=== PATIENT | female | born 1945 | race Caucasian/White ===

== ENCOUNTER 2016-09-04 13:57 | Inpatient (IN) ==
[2016-09-04] MEDS ORDERED: Ondansetron 4 MG/2 ML VIAL IVP ONE (15:33)
[2016-09-04] MEDS ORDERED: 0.9 % Sodium Chloride 1,000 ML IVC ONE ×2 (15:34→16:51)
[2016-09-04] MEDS ORDERED: Tdap (Boostrix) Vaccine 0.5 ML SYRINGE IM ONE (15:36)
--- NOTE | 2016-09-04 15:36 | Emergency Department Note ---
Disposition Clinical Impression: Frail elderly, Head injury, Vomiting, Hypoxemia, Multiple abrasions, Confusion , Fall, Sepsis, Pneumonia, Abnormal liver function test, Renal failure Disposition: Admitted As Inpatient Referrals: Tenzin Escobedo Jr, MD [Primary Care Provider] - Forms: ED Satisfaction Letter General Adult HPI - General Chief complaint: ED Nausea/Vomiting/Diarrhea Stated complaint: vomiting, weak Time Seen by Provider: 09/04/16 15:06 - History of Present Illness HPI Narrative: 71-year-old female comes in from home, her son reports the patient was on the floor when he got there. The patient complains of recurrent vomiting. She does not remember how she got on the floor, she was on the couch, there is concern that she may have hit her head. The patient denies any chest pain, her initial oxygen saturations were in the 80s at home, she does not usually wear oxygen has no history of asthma or COPD. There is no history of cough or chest pain or leg swelling no coughing up blood. There is no history of abdominal pain or diarrhea. No neck or back pain and no upper or lower extremity pain or trouble moving the arms or legs independent leak. There is a history of some confusion at home. The patient is usually able to take care of herself, her mentation is reportedly deep increased from usual. There is no history of seizure. No fevers. No urinary symptoms. The patient has had a unilateral arm or leg weakness or numbness, no slurred speech or facial drooping. Pain Scale: 0 - Related Data Home Medications Medication Instructions Recorded Confirmed Amitriptyline [Elavil] 50 mg PO HS 05/21/15 05/21/15 Aspirin Enteric Coated [Aspirin EC] 81 mg PO DAILY 05/21/15 05/21/15 Cholecalciferol (Vitamin D3) 5,000 unit PO DAILY 05/21/15 05/21/15 [Vitamin D3] Estradiol [Estrace] 1 mg PO DAILY 05/21/15 05/21/15 Lisinopril-HCTZ 20-12.5 [Prinzide 1 tab PO DAILY 05/21/15 05/21/15 20-12.5] Omeprazole [PriLOSEC] 20 mg PO DAILY 05/21/15 05/21/15 Previous Rx's Medication Instructions Recorded Acetaminophen [Tylenol] 650 mg PO Q6HR PRN #0 tablet 06/17/15 Alprazolam [Xanax 1 MG Tablet] 1 mg PO TID PRN #15 tablet 06/17/15 Atorvastatin [Lipitor] 40 mg PO HS tablet 06/17/15 Docusate [Colace] 100 mg PO BID PRN #0 capsule 06/17/15 Ferrous Sulfate 325 mg PO DAILY@0800 tablet 06/17/15 Fluticasone Propionate Nasal 50 mcg NS DAILY bottle 06/17/15 [Flonase] Ipratropium/Albuterol Neb [Duoneb] 3 ml IH QIDR inhsol 06/17/15 Magnesium Oxide [Mag-Ox] 400 mg PO DAILY tablet 06/17/15 Megestrol Acetate [Megace] 400 mg PO DAILY udc 06/17/15 Saline Nasal [place] [[place] Nasal 2 spray NS Q2H PRN #0 bottle 06/17/15 [place]] Amoxicillin [Amoxil] 500 mg PO Q8HR #30 capsule 03/15/16 Allergies Allergy/AdvReac Type Severity Reaction Status Date / Time No Known Allergies Allergy Verified 09/04/16 14:02 All systems ED: reviewed and negative except as stated. 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 Absent: scleral icterus, conjunctival injection, mydriasis - ENT ENT exam: normal exam, normal oropharynx, mucous membranes moist, TM's normal bilaterally, normal external ear exam - Neck Neck exam: Present: normal inspection, full ROM, trachea midline. Absent: tenderness - Chest Chest inspection: Present: symmetric chest wall rise. Absent: tenderness - Respiratory Respiratory exam: Present: normal lung sounds bilaterally. Absent: respiratory distress - Cardiovascular Cardiovascular exam: Present: normal rhythm, tachycardia - Abdominal Exam Abdominal exam: Present: soft, Non-Tender, normal bowel sounds. Absent: tenderness, distention, guarding, rebound, rigidity, trauma, pulsatile mass - Extremities Exam Extremities exam: Present: normal inspection, full ROM, normal capillary refill. Absent: tenderness, pedal edema, joint swelling, calf tenderness - Expanded Lower Extremity Exam Lower leg exam: Absent: Homans' sign Neurovascular/Tendon exam: Present: normal capillary refill. Absent: motor deficit, sensory deficit, tendon deficit, extremity cold to touch, pallor - Back Exam Back exam: Present: full ROM. Absent: tenderness, CVA tenderness (R), CVA tenderness (L), vertebral tenderness - Neurological Exam Neurological exam: Present: alert, oriented X3, CN II-XII intact. Absent: motor sensory deficit - Psychiatric Psychiatric exam: Present: normal affect, normal mood - Skin Skin exam: Present: warm, dry, intact, normal color. Absent: rash, cyanosis, diaphoresis, erythema, pallor, mottled Course Vital Signs Temperature 98.5 F 09/04/16 13:59 Pulse Rate 102 09/04/16 13:59 Respiratory Rate 16 09/04/16 13:59 Blood Pressure 113/71 09/04/16 13:59 O2 Sat by Pulse Oximetry 93 L 09/04/16 13:59 Temperature 98.5 F 09/04/16 13:59 Pulse Rate 102 09/04/16 13:59 Respiratory Rate 16 09/04/16 13:59 Blood Pressure 113/71 09/04/16 13:59 O2 Sat by Pulse Oximetry 93 L 09/04/16 13:59 Oxygen Delivery Oxygen Delivery Room Air Medical Decision Making - Lab Data Lab results reviewed: Yes I reviewed the patient's lab results. Result diagrams: 09/04/16 15:48 09/04/16 15:48 Lab Results 09/04/16 09/04/16 09/04/16 Range/Units 15:48 15:48 15:48 WBC 14.0 H (4.3-11.1) K/mcL RBC 3.55 L (3.82-4.97) M/mcL Hgb 10.9 L (11.5-15.4) g/dL Hct 31.6 L (35.3-44.9) % MCV 89.0 (83.0-100.0) fL MCH 30.7 (28.0-33.3) pg MCHC 34.5 (31.6-35.5) g/dL RDW 11.9 (11.5-14.5) % Plt Count 191 (140-400) K/mcL MPV 9.0 L (9.4-12.4) fL Immature Gran % 0.4 (0-4) % Seg Neutrophils % 87.5 % Lymphocytes % 6.1 % Monocytes % 5.4 % Eosinophils % 0.3 % Basophils % 0.3 % Neutrophils # 12.2 H (1.6-8.9) K/mcL Lymphocytes # 0.9 (0.6-4.6) K/mcL Monocytes # 0.8 (0.0-1.3) K/mcL Eosinophils # 0.0 (0.0-0.6) K/mcL Basophils # 0.0 (0.0-0.2) K/mcL Sodium 136 (136-145) mEq/L Potassium 3.9 (3.5-4.5) mEq/L Chloride 102 (98-109) mEq/L Carbon Dioxide 22 (19-29) mEq/L BUN 29 H (7-20) mg/dL Creatinine 1.72 H (0.57-1.11) mg/dL Est GFR ( Amer) 35 L (> 60) Est GFR (Non-Af Amer) 29 L (> 60) BUN/Creatinine Ratio 17 (6-26) Glucose 115 H (70-99) mg/dL Calculated Osmolality 289 (280-300) Lactic Acid (0.5-2.2) mmol/L Calcium 9.2 (8.6-10.8) mg/dL Total Bilirubin 2.0 H (0.2-1.2) mg/dL Direct Bilirubin 0.7 H (0.0-0.5) mg/dL Indirect Bilirubin 1.3 H (0.0-1.2) mg/dL AST 25 (5-34) Units/L ALT 13 (0-55) Units/L Alkaline Phosphatase 72 (38-126) Units/L Creatine Kinase (29-168) Units/L Troponin I 0.03 (0-0.03) ng/mL B-Natriuretic Peptide (0-100) pg/mL Serum Total Protein 6.7 (6.0-8.3) g/dL Albumin 3.6 (3.5-5.0) g/dL Globulin 3.1 (2.4-3.5) g/dL Albumin/Globulin Ratio 1.2 (1.1-2.2) Amylase 35 (25-125) Units/L Lipase 15 (8-78) Units/L 09/04/16 09/04/16 09/04/16 Range/Units 15:48 15:48 15:48 WBC (4.3-11.1) K/mcL RBC (3.82-4.97) M/mcL Hgb (11.5-15.4) g/dL Hct (35.3-44.9) % MCV (83.0-100.0) fL MCH (28.0-33.3) pg MCHC (31.6-35.5) g/dL RDW (11.5-14.5) % Plt Count (140-400) K/mcL MPV (9.4-12.4) fL Immature Gran % (0-4) % Seg Neutrophils % % Lymphocytes % % Monocytes % % Eosinophils % % Basophils % % Neutrophils # (1.6-8.9) K/mcL Lymphocytes # (0.6-4.6) K/mcL Monocytes # (0.0-1.3) K/mcL Eosinophils # (0.0-0.6) K/mcL Basophils # (0.0-0.2) K/mcL Sodium (136-145) mEq/L Potassium (3.5-4.5) mEq/L Chloride (98-109) mEq/L Carbon Dioxide (19-29) mEq/L BUN (7-20) mg/dL Creatinine (0.57-1.11) mg/dL Est GFR ( Amer) (> 60) Est GFR (Non-Af Amer) (> 60) BUN/Creatinine Ratio (6-26) Glucose (70-99) mg/dL Calculated Osmolality (280-300) Lactic Acid 1.9 (0.5-2.2) mmol/L Calcium (8.6-10.8) mg/dL Total Bilirubin (0.2-1.2) mg/dL Direct Bilirubin (0.0-0.5) mg/dL Indirect Bilirubin (0.0-1.2) mg/dL AST (5-34) Units/L ALT (0-55) Units/L Alkaline Phosphatase (38-126) Units/L Creatine Kinase 450 H (29-168) Units/L Troponin I (0-0.03) ng/mL B-Natriuretic Peptide 71 (0-100) pg/mL Serum Total Protein (6.0-8.3) g/dL Albumin (3.5-5.0) g/dL Globulin (2.4-3.5) g/dL Albumin/Globulin Ratio (1.1-2.2) Amylase (25-125) Units/L Lipase (8-78) Units/L - Radiology Data Radiology results reviewed: Yes I reviewed the patient's radiology results. - EKG Data EKG #1 EKG shows normal: sinus rhythm Rhythm: NSR, other (Sinus arrhythmia) Interpretation: no acute changes
[2016-09-04 15:56] LABS: Basophils % 0.3 %; Eosinophils % 0.3 %; Hematocrit 31.6 % (35.3-44.9); Hemoglobin 10.9 g/dL (11.5-15.4); Immature Granulocytes % 0.4 % (0-4); Lymphocytes # 0.9 K/mcL (0.6-4.6); Lymphocytes % 6.1 %; Mean Corpuscular HGB Conc 34.5 g/dL (31.6-35.5); Mean Corpuscular Hemoglobin 30.7 pg (28.0-33.3); Monocytes # 0.8 K/mcL (0.0-1.3); Monocytes % 5.4 %; Neutrophils # 12.2 K/mcL (1.6-8.9); Platelet Count 191 K/mcL (140-400); Red Blood Count 3.55 M/mcL (3.82-4.97); Red Cell Distribution Width 11.9 % (11.5-14.5); Segmented Neutrophils % 87.5 %
[2016-09-04 16:11] LABS: Albumin 3.6 g/dL (3.5-5.0); Albumin/Globulin Ratio 1.2 (1.1-2.2); Bilirubin,Direct 0.7 mg/dL (0.0-0.5); Bilirubin,Indirect 1.3 mg/dL (0.0-1.2); Calcium 9.2 mg/dL (8.6-10.8); Globulin 3.1 g/dL (2.4-3.5); Potassium 3.9 mEq/L (3.5-4.5); Total Protein 6.7 g/dL (6.0-8.3)
[2016-09-04] MEDS ORDERED: *HR* LORazepam 2 MG/ML VIAL IVP ONE (16:47)
[2016-09-04] MEDS ORDERED: Levofloxacin 750 MG/150 ML 750 MG/150 ML BAG IVPB ONE (16:50)
[2016-09-04] MEDS ORDERED: methylPREDNISolone 125 MG/2 ML VIAL IVP ONE (17:08)
--- NOTE | 2016-09-04 20:45 | Internal Med History&Physical ---
Date of Encounter: 09/04/16 Time of Encounter: 20:42 Assessment and Plan (1) Aspiration pneumonia Current visit: Yes Status: Acute Suspect that this is related to chronic constipation. However she still have concerns with aspiration regardless of vomiting. I will therefore keep the patient NPO speech therapist to see the patient. Patient will be started on antibiotics Zosyn and Levaquin. Sputum culture. Qualifiers: Qualified Code(s): J69.0 - Pneumonitis due to inhalation of food and vomit (2) Chronic renal disease Current visit: No Status: Acute Stable. hydration Qualifiers: Chronic kidney disease stage: unspecified stage Qualified Code(s): N18.9 - Chronic kidney disease, unspecified (3) Acute respiratory failure with hypoxia Current visit: Yes Status: Acute Patient is currently requiring 5 L of nasal oxygen. She is comfortable at rest. No accessory muscle use. She denies any prior known history of coronary artery disease. Internal Medicine - H&P: HPI Chief complaint: sob, AMS History of present illness: Ms. Chandler is a 71 year old female with multiple medical problems presented in the hospital after her father son found her stuporOUS on the ground close to her couch. Patient is alert and oriented times 3 during my interview and is able to provide history. Patient mentioned that she is usually constipated moves her bowels once weekly. She had eaten a lot yesterday and woke up at 3 AM feeling nauseous started throwing up multiple times. She thinks that she may have aspirated. She was found on the ground by her son less responsive. The chapter oxygen saturation was found to be 80% and therefore brought her to the emergency room. Patient had a similar episode in the recent hospitalization during which showed the syncopal episode unsuspected aspiration pneumonia. I have asked the patient whether she has normal swallowing when she is not vomiting and she said that she does have problems swallowing regardless of these episodes of vomiting. Patient short of breath during my interview speaking in 3 to 4 sentences. Positive chills but no fever. Patient denies any diarrhea. No abdominal pain. Last bowel movement 2 days ago. Past Med Surg Social Fam HX - Past Medical History Medical history: arthritis, GERD, hyperlipidemia, hypertension, osteoporosis, renal disease Psychiatric history: anxiety - Past Surgical History Surgical History: colectomy, hysterectomy - Social History Smoking Status: Unknown if ever smoked Smokeless Tobacco Status: No Alcohol use: unknown Drug use: none Internal Medicine - H&P: Meds Aspirin Enteric Coated [Aspirin EC] 81 mg PO DAILY 05/21/15 [History] Acetaminophen with Codeine [Acetaminophen-Cod #4 Tablet] 1 each PO Q4H PRN 09/04 [History] Alprazolam [Xanax 1 MG Tablet] 1 mg PO TID 09/04/16 [History] Ipratropium [place] 2 spray NS BID PRN 09/04/16 [History] Losartan/HCTZ [Hyzaar 50-12.5 Tablet] 1 each PO DAILY 09/04/16 [History] Simvastatin [Zocor] 80 mg PO HS 09/04/16 [History] Allergies ibuprofen [From Motrin] Adverse Reaction (Verified 09/04/16 17:19) Chest Pain Zolpidem [From Ambien] Adverse Reaction (Verified 09/04/16 17:19) Hallucinating All Systems PM: A 10-system review of systems was performed and is negative for pertinent findings except as documented above in the HPI. Review of systems: 10 point ROS is negative except for HPI. - Constitutional Vitals: Temp Pulse Resp BP Pulse Ox 97.4 F L 84 17 134/60 99 09/04/16 19:34 09/04/16 19:34 09/04/16 19:34 09/04/16 19:34 09/04/16 19:34 Exam: Gen.: patient is alert and oriented times 3 not in distress. Cardio: normal S1 S2 no additional sounds or murmers chest: scattered expiratory wheeze abdomen: soft, tender nondistended head: no jaundice or cyanosis. Neck no JVD lower extremity no swelling Internal Med - H&P Results - Labs CBC & Chem 7: 09/04/16 15:48 09/04/16 15:48
[2016-09-04] MEDS ORDERED: Levofloxacin 750 MG/150 ML 750 MG/150 ML BAG IVPB SCH (21:00)
[2016-09-04] MEDS: 0.9 % Sodium Chloride 1,000 ML IVC SCH (22:05)
[2016-09-04] MEDS: Piperacillin/Tazobactam 3.375 GM in D5% in Water (Mini-Bag+) 100 ML IVPB SCH (22:05)
[2016-09-04] MEDS: *HR* Heparin 5,000 UNIT/ML VIAL SQ SCH (22:07)
[2016-09-04] MEDS: Ipratropium/Albuterol Neb 3 ML IH SCH (22:38)
[2016-09-04] MEDS ORDERED: *HR* Morphine 2 MG/ML SYRINGE IVP ONE (22:40)
[2016-09-05] MEDS: Ipratropium/Albuterol Neb 3 ML IH SCH ×4 (03:56→22:18)
[2016-09-05 06:45] LABS: Basophils % 0.1 %; Hematocrit 35.2 % (35.3-44.9); Hemoglobin 11.3 g/dL (11.5-15.4); Immature Granulocytes % 1.6 % (0-4); Lymphocytes # 0.9 K/mcL (0.6-4.6); Lymphocytes % 9.1 %; Mean Corpuscular HGB Conc 32.1 g/dL (31.6-35.5); Mean Corpuscular Hemoglobin 30.1 pg (28.0-33.3); Mean Corpuscular Volume 93.6 fL (83.0-100.0); Mean Platelet Volume 10.6 fL (9.4-12.4); Monocytes # 0.5 K/mcL (0.0-1.3); Monocytes % 4.9 %; Neutrophils # 8.3 K/mcL (1.6-8.9); Platelet Count 183 K/mcL (140-400); Red Blood Count 3.76 M/mcL (3.82-4.97); Red Cell Distribution Width 13.6 % (11.5-14.5); Segmented Neutrophils % 84.3 %
[2016-09-05] MEDS: Piperacillin/Tazobactam 3.375 GM in D5% in Water (Mini-Bag+) 100 ML IVPB SCH (06:51)
[2016-09-05] MEDS: *HR* Heparin 5,000 UNIT/ML VIAL SQ SCH ×3 (06:52→21:58)
[2016-09-05 07:00] LABS: BUN/Creatinine Ratio 15 (6-26); Blood Urea Nitrogen 9 mg/dL (7-20); Calcium 8.4 mg/dL (8.6-10.8); Carbon Dioxide 26 mEq/L (19-29); Chloride 110 mEq/L (98-109); Creatine Kinase 95 Units/L (29-168); Glucose 134 mg/dL (70-99); Magnesium 1.8 mg/dL (1.6-2.6); Osmolality,Calculated 299 (280-300); Potassium 3.4 mEq/L (3.5-4.5); Sodium 144 mEq/L (136-145); eGFR For African Americans > 60 (> 60); eGFR For Non-African Americans > 60 (> 60)
--- NOTE | 2016-09-05 08:17 | Electrocardiograph Report ---
[place] [id number] Test Date: 2016-09-04 Pat Name: Ebonie Chandler Department: 103 Room: 2A35 Gender: F Community Recreation Coordinator: KAMRON : 1945 Requested By: Ortiz Stratton Order Number: [id number] Reading MD: Jeffery Gary MD Measurements Intervals [place] Rate: 75 P: 32 SC: 203 QRS: 16 QRSD: 90 T: 37 QT: 388 QTc: 416 Interpretive Statements SINUS RHYTHM WITH MARKED SINUS ARRHYTHMIA BASELINE ARTIFACT Electronically Signed On 09-05-2016 8:16:01 EDT by Jeffery Gary MD
[2016-09-05] MEDS: Famotidine 20 MG/2 ML VIAL IVP SCH (08:40)
--- NOTE | 2016-09-05 10:10 | Internal Med Progress Note ---
Date of Encounter: 09/04/16 Time of Encounter: 10:08 - Assessment and plan (1) Sepsis Current Visit: Yes Status: Acute Assessment and plan: Hypoxic respiratory failure secondary to sepsis due to aspiration pneumonia present upon admission History of recurrent aspiration Was started on Zosyn and Levaquin Switch to Unasyn Speech pathology evaluation recommended barium swallow study Aspiration precautions, continue oxygen therapy High risk of aspiration Qualifiers: Sepsis type: sepsis due to unspecified organism Qualified Code(s): A41.9 - Sepsis, unspecified organism (2) Hypokalemia Current Visit: Yes Status: Acute Assessment and plan: Replete as needed (3) Chronic renal disease Current Visit: No Status: Acute Assessment and plan: Acute on chronic renal failure Improved Creatinine was 1.7 to upon admission, today 0.61 Qualifiers: Chronic kidney disease stage: stage 3 (moderate) Qualified Code(s): N18.3 - Chronic kidney disease, stage 3 (moderate) (4) Esophagitis determined by endoscopy Current Visit: No Status: Acute Assessment and plan: Esophagitis in the past Continue omeprazole (5) Hypoxemia Current Visit: Yes Status: Acute (6) Aspiration pneumonia Current Visit: Yes Status: Acute Qualifiers: Qualified Code(s): J69.0 - Pneumonitis due to inhalation of food and vomit (7) MONI (acute kidney injury) Current Visit: No Status: Acute (8) Anxiety Current Visit: Yes Status: Acute Assessment and plan: With history of panic attacks Continue Xanax - Time Spent With Patient Greater than 35 minutes - Subjective Interval history: denies chocking on her food lately, denies nausea , no vomiting since admission , no fevers, complains of chills, no abdominal pain or diarrhea. No chest pain - Constitutional Vitals: Temp Pulse Resp BP Pulse Ox 97.7 F 109 18 138/59 97 09/05/16 03:37 09/05/16 03:37 09/05/16 03:58 09/05/16 03:37 09/05/16 03:58 General appearance: Present: A&O X 3 - Head Head exam: Present: atraumatic, normocephalic - Eye Eye exam: Present: PERRL, conjuntiva pink, sclera anicteric Pupils: Present: PERRL - Neck Neck exam general surgery: Present: supple, trachea midline. Absent: lymphadenopathy - Respiratory Respiratory exam: Present: CTAB, rales (Coarse crackles in the right base). Absent: accessory muscle use, rhonchi, wheezes - Cardiovascular Cardiovascular exam: Present: RRR, +S1, +S2. Absent: diastolic murmur, gallop, rubs, systolic murmur - GI/Abdominal GI/Abdominal exam: Present: normal bowel sounds, soft, no peritoneal signs. Absent: distended, tenderness - Extremities Exam Extremities exam: Present: warm, radial pulses palpable and symetrical. Absent : calf tenderness, cyanotic, pedal edema - Neurological Exam Neurological exam: Present: CN II-XII intact, oriented X3, no focal deficits. Absent: pronater drift, facial droop, speech deficit - Skin Skin exam: Present: dry, intact Internal Medicine: Result - Labs CBC & Chem 7: 09/05/16 06:26 09/05/16 06:26 Labs: Short CBC 09/05/16 Range/Units 06:26 WBC 9.8 (4.3-11.1) K/mcL Hgb 11.3 L (11.5-15.4) g/dL Hct 35.2 L (35.3-44.9) % Plt Count 183 (140-400) K/mcL Neutrophils # 8.3 (1.6-8.9) K/mcL BMP 09/05/16 06:26 Sodium 144 D Potassium 3.4 L Chloride 110 H Carbon Dioxide 26 BUN 9 D Creatinine 0.61 D Glucose 134 H Calcium 8.4 L Cardiac Enzymes 09/05/16 Range/Units 06:26 Troponin I 0.00 (0-0.03) ng/mL Consult Discharge Plan - Plan Referrals: Tenzin Escobedo Jr, MD [Primary Care Provider] - (Web requested 09/04/16)
[2016-09-05] MEDS: ALPRAZolam 1 MG TABLET PO SCH ×3 (11:34→21:58)
[2016-09-05] MEDS: Ampicillin/Sulbactam 3,000 MG in 0.9 % Sodium Chloride Mini Bag 100 ML IVPB SCH ×2 (11:34→17:59)
[2016-09-05] MEDS: 0.9 % Sodium Chloride 1,000 ML IVC SCH ×2 (14:57→15:44)
[2016-09-05] MEDS: Acetaminophen 325 MG TABLET PO PRN (15:57)
[2016-09-05] MEDS ORDERED: Acetaminophen 325 MG TABLET PO SCH (16:00)
[2016-09-05] MEDS ORDERED: Nitroglycerin 0.4 MG TAB.SUBL SL PRN (16:24)
[2016-09-05] MEDS: *HR* LORazepam 2 MG/ML VIAL IVP PRN ×2 (16:41→23:04)
[2016-09-05 22:30] LABS: Bilirubin,Urine Negative (Negative); Blood,Urine Trace (Negative); Clarity,Urine Clear (Clear); Color,Urine Yellow (Yellow); Glucose,Urine (UA) Normal (Normal); Ketones,Urine Negative (Negative); Leukocyte Esterase,Urine Small (Negative); Nitrite,Urine Negative (Negative); Protein,Urine Trace mg/dL (Neg-Trace); Specific Gravity,Urine 1.016 (1.010-1.025); Urobilinogen,Urine Normal (Normal)
[2016-09-05 22:35] LABS: Bacteria,Urine None Seen per hpf (None-Few); Hyaline Casts,Urine None Seen per lpf (None-Few); Squamous Epithelial Cell,Urine Many per lpf (None-Few)
[2016-09-06] MEDS: Ampicillin/Sulbactam 3,000 MG in 0.9 % Sodium Chloride Mini Bag 100 ML IVPB SCH ×3 (00:13→18:14)
[2016-09-06] MEDS: 0.9 % Sodium Chloride 1,000 ML IVC SCH (03:28)
[2016-09-06] MEDS: Ipratropium/Albuterol Neb 3 ML IH SCH ×4 (04:45→21:16)
[2016-09-06 05:30] LABS: Mean Corpuscular HGB Conc 34.4 g/dL (31.6-35.5); Mean Corpuscular Volume 90.3 fL (83.0-100.0); Mean Platelet Volume 9.6 fL (9.4-12.4); Platelet Count 173 K/mcL (140-400); Red Blood Count 2.77 M/mcL (3.82-4.97); Red Cell Distribution Width 12.4 % (11.5-14.5)
[2016-09-06] MEDS: *HR* Heparin 5,000 UNIT/ML VIAL SQ SCH (05:31)
[2016-09-06 05:35] LABS: Hemoglobin 8.6 g/dL (11.5-15.4)
[2016-09-06 05:47] LABS: Calcium 8.4 mg/dL (8.6-10.8); Potassium 4.2 mEq/L (3.5-4.5)
[2016-09-06] MEDS: ALPRAZolam 1 MG TABLET PO SCH ×3 (08:47→21:00)
[2016-09-06] MEDS: Losartan/HCTZ 50-12.5 TABLET PO SCH (08:47)
[2016-09-06] MEDS: Famotidine 20 MG/2 ML VIAL IVP SCH (08:48)
[2016-09-06] MEDS ORDERED: Aspirin Enteric Coated 81 MG Tablet PO SCH (09:00)
--- NOTE | 2016-09-06 11:59 | Internal Med Progress Note ---
Date of Encounter: 09/04/16 Time of Encounter: 11:44 - Assessment and plan (1) Sepsis Current Visit: Yes Status: Acute Assessment and plan: Hypoxic respiratory failure secondary to sepsis due to aspiration pneumonia present upon admission Concerning for fluid overload, Stop fluids, start Lasix IV 20 mg twice a day, check echocardiogram History of recurrent aspiration Was started on Zosyn and Levaquin Switched to Unasyn day 2 Speech pathology evaluation recommended barium swallow study: Did not show any abnormality Aspiration precautions, continue oxygen therapy High risk of aspiration Qualifiers: Sepsis type: sepsis due to unspecified organism Qualified Code(s): A41.9 - Sepsis, unspecified organism (2) Hypokalemia Current Visit: Yes Status: Acute Assessment and plan: Replete as needed (3) Chronic renal disease Current Visit: No Status: Acute Assessment and plan: Acute on chronic renal failure Improved Creatinine was 1.7 to upon admission, today 1.62 Qualifiers: Chronic kidney disease stage: stage 3 (moderate) Qualified Code(s): N18.3 - Chronic kidney disease, stage 3 (moderate) (4) Esophagitis determined by endoscopy Current Visit: No Status: Acute Assessment and plan: Esophagitis in the past, the patient had an endoscopy that showed gastritis in June, colonoscopy did not show any abnormality Denies any dark stools but her hemoglobin has dropped down to 8.6 ( possibly dilutional from overhydration). Recheck CBC Start Protonix IV, hold aspirin, hold soup between his heparin Ordered a Hemoccult and consider GI consult if bleeding is evidence (5) Hypoxemia Current Visit: Yes Status: Acute (6) Aspiration pneumonia Current Visit: Yes Status: Acute Qualifiers: Qualified Code(s): J69.0 - Pneumonitis due to inhalation of food and vomit (7) MONI (acute kidney injury) Current Visit: No Status: Acute (8) Anxiety Current Visit: Yes Status: Acute Assessment and plan: With history of panic attacks Continue Ativan - Subjective Interval history: No bleeding, feeling slightly short winded using 2 and his morning improvement he is the other one see what the rest since he is 11 denies chocking on her food lately, denies nausea , no vomiting since admission , no fevers, complains of chills, no abdominal pain or diarrhea. No chest pain - Constitutional Vitals: Temp Pulse Resp BP Pulse Ox 98 F 74 16 156/63 97 03/31/17 11:28 09/06/16 11:28 09/06/16 11:28 09/06/16 11:28 09/06/16 11:28 General appearance: Present: A&O X 3 - Head Head exam: Present: atraumatic, normocephalic - Eye Eye exam: Present: PERRL, conjuntiva pink, sclera anicteric Pupils: Present: PERRL - Neck Neck exam general surgery: Present: supple, trachea midline. Absent: lymphadenopathy - Respiratory Respiratory exam: Present: CTAB, rales (Bibasilar crackles). Absent: accessory muscle use, rhonchi, wheezes - Cardiovascular Cardiovascular exam: Present: RRR, +S1, +S2. Absent: diastolic murmur, gallop, rubs, systolic murmur - GI/Abdominal GI/Abdominal exam: Present: normal bowel sounds, soft, no peritoneal signs. Absent: distended, tenderness - Extremities Exam Extremities exam: Present: warm, radial pulses palpable and symetrical. Absent : calf tenderness, cyanotic, pedal edema - Neurological Exam Neurological exam: Present: CN II-XII intact, oriented X3, no focal deficits. Absent: pronater drift, facial droop, speech deficit - Skin Skin exam: Present: dry, intact Internal Medicine: Result - Labs CBC & Chem 7: 09/06/16 04:57 09/06/16 04:57 Labs: Short CBC 09/06/16 Range/Units 04:57 WBC 12.3 H (4.3-11.1) K/mcL Hgb 8.6 L D (11.5-15.4) g/dL Hct 25.0 L (35.3-44.9) % Plt Count 173 (140-400) K/mcL BMP 09/06/16 04:57 Sodium 139 Potassium 4.2 Chloride 110 H Carbon Dioxide 23 BUN 30 H D Creatinine 1.62 H D Glucose 137 H Calcium 8.4 L Cardiac Enzymes 09/05/16 Range/Units 16:38 Troponin I 0.00 (0-0.03) ng/mL Urine 09/05/16 Range/Units 22:15 Urine Color Yellow (Yellow) Urine Clarity Clear (Clear) Urine pH 6.0 (5.0-8.0) pH Units Ur Specific [place] 1.016 (1.010-1.025) Urine Protein Trace (Neg-Trace) mg/dL Urine Glucose (UA) Normal (Normal) mg/dL Consult Discharge Plan - Plan Referrals: Tenzin Escobedo Jr, MD [Primary Care Provider] - (Web requested 09/04/16)
[2016-09-06] MEDS: Furosemide 40 MG/4 ML VIAL IV SCH ×2 (12:36→21:00)
[2016-09-06] MEDS: Pantoprazole 40 MG VIAL IV SCH ×2 (12:36→21:00)
[2016-09-06 14:55] LABS: Hematocrit 28.6 % (35.3-44.9); Hemoglobin 9.4 g/dL (11.5-15.4); Immature Platelets 3.2 % (1.1-6.1); Mean Corpuscular HGB Conc 32.9 g/dL (31.6-35.5); Mean Corpuscular Hemoglobin 30.3 pg (28.0-33.3); Mean Corpuscular Volume 92.3 fL (83.0-100.0); Red Blood Count 3.1 M/mcL (3.82-4.97); Red Cell Distribution Width 12.6 % (11.5-14.5)
[2016-09-06] MEDS: *HR* LORazepam 2 MG/ML VIAL IVP PRN ×2 (16:39→23:00)
[2016-09-07] MEDS: Acetaminophen 325 MG TABLET PO PRN ×2 (01:05→08:57)
[2016-09-07] MEDS: Ipratropium/Albuterol Neb 3 ML IH SCH ×2 (04:43→11:11)
[2016-09-07] MEDS: Ampicillin/Sulbactam 3,000 MG in 0.9 % Sodium Chloride Mini Bag 100 ML IVPB SCH (05:28)
[2016-09-07 05:55] LABS: Hematocrit 27.7 % (35.3-44.9); Hemoglobin 9.5 g/dL (11.5-15.4); Mean Corpuscular HGB Conc 34.3 g/dL (31.6-35.5); Mean Corpuscular Hemoglobin 30.6 pg (28.0-33.3); Mean Corpuscular Volume 89.4 fL (83.0-100.0); Platelet Count 201 K/mcL (140-400)
[2016-09-07 06:05] LABS: INR 1.3; Prothrombin Time 14.5 Seconds (9.4-12.1)
[2016-09-07 06:08] LABS: Calcium 8.8 mg/dL (8.6-10.8)
[2016-09-07 06:11] LABS: Potassium 3.1 mEq/L (3.5-4.5)
[2016-09-07] MEDS: ALPRAZolam 1 MG TABLET PO SCH (08:56)
[2016-09-07] MEDS: Losartan/HCTZ 50-12.5 TABLET PO SCH (08:56)
[2016-09-07] MEDS: Furosemide 40 MG/4 ML VIAL IV SCH (08:57)
--- NOTE | 2016-09-07 08:57 | Electrocardiograph Report ---
[place] [id number] Test Date: 2016-09-05 Pat Name: Ebonie Chandler Department: 112 Room: 2A35 Gender: F Systems Security Analyst: : 1945 Requested By: Bart Mascorro Order Number: [id number] Reading MD: Nish Jerry MD Measurements Intervals [place] Rate: 104 P: 47 TN: 203 QRS: 9 QRSD: 97 T: 40 QT: 348 QTc: 409 Interpretive Statements SINUS TACHYCARDIA FIRST DEGREE AV BLOCK NONSPECIFIC ST \T\ T WAVE ABNORMALITY Electronically Signed On 09-07-2016 8:55:54 EDT by Nish Jerry MD
[2016-09-07] MEDS: Pantoprazole 40 MG VIAL IV SCH (08:58)
[2016-09-07] MEDS: Famotidine 20 MG/2 ML VIAL IVP SCH (08:58)
[2016-09-07 10:28] LABS: Adenovirus Not Detected (Not Detect); Bordetella Pertussis Not Detected (Not Detect); Chlamydophila pneumoniae Not Detected (Not Detect); Coronavirus 229E Not Detected (Not Detect); Coronavirus HKU1 Not Detected (Not Detect); Coronavirus NL63 Not Detected (Not Detect); Coronavirus OC43 Not Detected (Not Detect); Human Metapneumovirus Not Detected (Not Detect); Human Rhinovirus/Enterovirus Not Detected (Not Detect); Influenza A Subtype 2009 H1 Not Detected (Not Detect); Influenza A Untypeable Not Detected (Not Detect); Influenza B Not Detected (Not Detect); Mycoplasma pneumoniae Not Detected (Not Detect); Parainfluenza Virus 1 Not Detected (Not Detect); Parainfluenza Virus 2 Not Detected (Not Detect); Parainfluenza Virus 3 Not Detected (Not Detect); Parainfluenza Virus 4 Not Detected (Not Detect); Respiratory Syncytial Virus Not Detected (Not Detect)
--- NOTE | 2016-09-07 10:43 | ECHO - Doppler Report ---
Echocardiogram Name: Ebonie Chandler Date of Study: 09/06/2016 Date: 1945 Ht: 64.0 in Medical Record#: [id number] Age: 71 Wt: 159.0 lb Gender: Female BSA: 1.77 Order #: [id number] Location: [facility] Room #: 2A35 Reading Physician: Davida Camacho DO Children'S Tutor: MEL Del RosarioT Ordering Physician: Bart Mascorro MD Primary Physician: Tenzin Escobedo MD Indications: Congestive heart failure Impressions: LVEF 65%. Normal left ventricular size and systolic function. There is evidence of mild diastolic dysfunction of the left ventricle. Normal right ventricular size and function. Mild mitral regurgitation. Mild tricuspid regurgitation. No pulmonary hypertension. Left Ventricular Wall Motion: Rest Echo Findings All wall segments showed normal motion. Findings: Study Quality * Technically adequate exam. ECG Findings * Normal sinus rhythm. Left Ventricle * Normal LV chamber size, wall thickness and function. * LVEF 65%. * Mild left ventricular diastolic dysfunction. Mitral Valve * Normal mitral valve structure. * No mitral stenosis. * Mild mitral regurgitation. Aorta * Normally sized aortic root. Aortic Valve * No aortic regurgitation. * Aortic valve not well visualized. * No aortic stenosis. Tricuspid Valve * Tricuspid valve not well visualized. * Mild tricuspid regurgitation. * Estimated RA pressure is 3 mmHg. * Estimated RVSP is 28 mmHg. * No pulmonary hypertension. Pulmonic Valve * Pulmonic valve is not well visualized. * No pulmonic stenosis. * No pulmonic regurgitation. Pulmonary Artery * Pulmonary artery not well visualized. Right Ventricle * Normal right ventricular structure and function. Right Atrium * Normal right atrial size. Left Atrium * Moderately dilated left atrium. Interatrial Septum * No evidence of PFO by color Doppler. IVC * Normal IVC dimensions and inspiratory collapse. History Hypertension Hypercholesteremia Family History of CAD 05-22-2015 a Previous Echo was performed. Measurements: BP: 156/ 63 2D Normal Values RVIDd: 2.90 cm <2.7 cm IVSd: .70 cm 0.6 - 1.0 cm LVIDd: 4.50 cm 3.7 - 5.6 cm LVPWd: .90 cm 0.6 - 1.1 cm LVIDs: 3.20 cm 1.5 - 3.6 cm AO: 2.60 cm < 4.0 cm LA: 3.60 cm 2.0 - 4.0cm %FS: 28.90 cm >25 % LA volume: 68 Mitral Valve Peak Velocity 1.67 m/sec Mean Velocity:1.06 m/sec Peak Grad:11.00 mmHg Mean Grad:5.00 mmHg Pressure Time:59.00 msec Valve Area:3.73 cm2 Peak E:1.50 m/sec Peak A:1.61 m/sec E/A Ratio:0.9 Peak E' Lat Jackson:6.82 cm/s Peak E' Med Jackson:6.63 cm/s E/E' Lat Ratio:22 E/E' Med Ratio:22.6 Tricuspid Valve TV Regurg Peak Grad: 25.00mmHg TV Regurg Peak Jackson: 2.50m/sec Updated by Davida Camacho on 09/07/2016 10:39:19 AM electronically signed on 09/07/2016 10:39:44 AM with status of Final Wall Motion Gonzalez: 1=Normal, 2=Hypokinesis, 3=Akinesis, 4=Dyskinesis, 5=Aneurysmal, 6=Hyperkinetic, X=Not Visualized (Blank)=Missing
[2016-09-07] MEDS: *HR* LORazepam 2 MG/ML VIAL IVP PRN (10:49)
[2016-09-07 11:05] VITALS: BP 136/75
--- NOTE | 2016-09-07 11:45 | Discharge Summary ---
Date of Encounter: 09/07/16 Time of Encounter: 11:44 - Discharge Diagnosis (1) Sepsis Priority: Primary Status: Acute Comments: Acute Hypoxic respiratory failure secondary to sepsis due to community acquired pneumonia versus aspiration pneumonia present upon admission Qualifiers: Sepsis type: sepsis due to unspecified organism Qualified Code(s): A41.9 - Sepsis, unspecified organism (2) Hypokalemia Priority: Secondary Status: Acute (3) Chronic renal disease Priority: Secondary Status: Acute Qualifiers: Chronic kidney disease stage: stage 3 (moderate) Qualified Code(s): N18.3 - Chronic kidney disease, stage 3 (moderate) (4) Esophagitis determined by endoscopy Priority: Secondary Status: Acute (5) Hypoxemia Priority: Primary Status: Acute (6) Aspiration pneumonia Priority: Primary Status: Acute Qualifiers: Qualified Code(s): J69.0 - Pneumonitis due to inhalation of food and vomit (7) MONI (acute kidney injury) Priority: Secondary Status: Acute Comments: Her initial creatinine was 1.72 thousand the next day it was 0.61 which probably was a laboratory error as Creatinines have been 1.62, 1.85 which are close to her prior baseline values (8) Anxiety Priority: Secondary Status: Acute - Discharge Medications Prescriptions: Alprazolam [Xanax 1 MG Tablet] 1 mg PO TID PRN #40 tablet PRN Reason: Anxiety Amoxicillin/Clavulanate [Augmentin] 875 mg PO BIDWM #10 tablet Omeprazole [PriLOSEC] 40 mg PO DAILY #30 cap Home Medications: Aspirin Enteric Coated [Aspirin EC] 81 mg PO DAILY 05/21/15 [History] Acetaminophen with Codeine [Acetaminophen-Cod #4 Tablet] 1 each PO Q4H PRN 09/04 [History] Ipratropium [place] 2 spray NS BID PRN 09/04/16 [History] Losartan/HCTZ [Hyzaar 50-12.5 Tablet] 1 each PO DAILY 09/04/16 [History] Simvastatin [Zocor] 80 mg PO HS 09/04/16 [History] Alprazolam [Xanax 1 MG Tablet] 1 mg PO TID PRN #40 tablet 09/07/16 [Rx] Amoxicillin/Clavulanate [Augmentin] 875 mg PO BIDWM #10 tablet 09/07/16 [Rx] Omeprazole [PriLOSEC] 40 mg PO DAILY #30 cap 09/07/16 [Rx] Allergies/Adverse Reactions: Allergies ibuprofen [From Motrin] Adverse Reaction (Verified 09/04/16 17:19) Chest Pain Zolpidem [From Ambien] Adverse Reaction (Verified 09/04/16 17:19) Hallucinating Procedures/tests Complete & Pending: Procedures Performed prior 72 hours Category Date Time Status ECG 12 lead ECG [ECG] Routine Y 09/05/16 16:05 Completed EV echocardiogram Routine Y 09/06/16 11:43 Completed Date of admission: 09/05/16 02:08 Primary care physician: Tenzin Escobedo Jr, MD - Patient Status Disposition: Home, Self-Care Condition: Good Overall status at discharge: patient is progressing back to baseline - Discharge Instructions Follow Up With: Tenzin Escobedo Jr, MD [Primary Care Provider] - (Web requested 09/04/16) Additional Instructions: Follow with primary care physician within the next 7 days. Complete 5 more days of Augmentin. May return to emergency room if feeling worse. - Diet and Activity Activity: increase activity as tolerated Diet: low fat, low cholesterol Hospital course: Ms. Chandler is a 71 year old female with a past medical history of chronic kidney disease stage III required hemodialyses after receiving vancomycin in a prior admission, hypertension, hyperlipidemia, GERD, osteoporosis presented to the hospital after her son found her stuporOUS on the ground close to her couch. The Patient mentioned that she is usually constipated moves her bowels once weekly. She had eaten a lot the day prior and woke up at 3 AM feeling nauseous started throwing up multiple times. She thinks that she may have aspirated. She was found on the ground by her son less responsive. Her oxygen saturation was found to be 80% and therefore brought her to the emergency room. Patient had a similar episode in the recent hospitalization during which showed the syncopal episode unsuspected aspiration pneumonia. CXR showed a new right middle lobe airspace disease concerning for pneumonia The patient was started on Levaquin and Zosyn. She was switched to Unasyn has been improving. Her lungs sounded very congested and required doses of Lasix. Echocardiogram showed an ejection fraction of 65% with mild diastolic dysfunction , mild mitral regurgitation and tricuspid regurgitation The patient ran a fever of 101.9 but clinically she feels better and is not ringing up much phlegm. Tested negative for viruses. Was evaluated by the speech pathology service and barium swallow evaluation was recommended which did not show any abnormality. During her hospitalization her hemoglobin dropped to 8.6 which most likely was a lab error as today her hemoglobin is 9.5 and she has not shown any evidence of bleeding. The patient was given the option to stay an additional day but she prefers to go home at the moment as she is feeling much better. Had a potassium of 3.1 which is being repleted. - Time Spent with Patient Total time spent providing and/or coordinating discharge services: Greater than 30 minutes (40 min) - Constitutional Vitals: Temp Pulse Resp BP Pulse Ox 98 F 67 16 136/75 95 09/07/16 11:02 09/07/16 11:02 09/07/16 11:02 09/07/16 11:02 09/07/16 11:02 General appearance: Present: A&O X 3 - Head Head exam: Present: atraumatic, normocephalic - Eye Eye exam: Present: PERRL, conjuntiva pink, sclera anicteric Pupils: Present: PERRL - Neck Neck exam general surgery: Present: supple, trachea midline. Absent: lymphadenopathy - Respiratory Respiratory exam: Present: CTAB. Absent: accessory muscle use, rales, rhonchi, wheezes - Cardiovascular Cardiovascular exam: Present: RRR, +S1, +S2. Absent: diastolic murmur, gallop, rubs, systolic murmur - GI/Abdominal GI/Abdominal exam: Present: normal bowel sounds, soft, no peritoneal signs. Absent: distended, tenderness - Extremities Exam Extremities exam: Present: warm, radial pulses palpable and symetrical. Absent : calf tenderness, cyanotic, pedal edema - Neurological Exam Neurological exam: Present: CN II-XII intact, oriented X3, no focal deficits. Absent: pronater drift, facial droop, speech deficit - Skin Skin exam: Present: dry, intact
[2016-09-07 18:24] LABS: CK-BB (CK isoenzymes) 0 % (0-0); CK-MB (CK isoenzymes) 0 % (0-4); CK-MM (CK-isoenzymes) 100 % (96-100)
[2016-09-08] MEDS ORDERED: Famotidine 20 MG TABLET PO SCH (09:00)
[2016-09-09 07:34] LABS: CK Total (Ck Isoenzymes) 95 U/L (20-180)
== END 2016-09-07 12:43 | disposition home or self-care (01) | DRG 871 ==
LOC: EMEROO 13:57 → 2ANU 13:57 → SUATTDRO 09-05 02:08
PROVIDERS: ADMIT Internal Medicine; ATTEND Internal Medicine

== ENCOUNTER 2016-09-22 12:08 | Inpatient (IN) ==
[2016-09-22] MEDS ORDERED: *HR* LORazepam 1 MG TABLET PO ONE (12:21)
[2016-09-22] MEDS ORDERED: Ipratropium/Albuterol Neb 3 ML IH ONE ×2 (12:21→14:35)
--- NOTE | 2016-09-22 12:24 | Emergency Department Note ---
Disposition Clinical Impression: Pneumonia Qualifiers: Pneumonia type: due to unspecified organism Laterality: bilateral Lung location : unspecified part of lung Qualified Code(s): J18.9 - Pneumonia, unspecified organism Dyspnea Qualifiers: Dyspnea type: unspecified Qualified Code(s): R06.00 - Dyspnea, unspecified Disposition: Admitted As Inpatient Condition: Fair Referrals: Tenzin Escobedo Jr, MD [Primary Care Provider] - Forms: ED Satisfaction Letter Time of Disposition: 14:54 SOB HPI - General Chief Complaint: ED Shortness of Breath/Dyspnea Stated Complaint: Pneumonia,AHMET Time Seen by Provider: 09/22/16 12:16 Source: patient, family Limitations: no limitations Nursing Notes Reviewed: Yes Vital Signs Reviewed: Yes - History of Present Illness 71-year-old female comes in with increasing shortness of breath cough congestion. Patient states she was admitted last week with possible aspiration pneumonia. When I review the discharge summary indicates community-acquired pneumonia versus aspiration. The patient has a history of severe reflux and vomited and may have aspirated. Patient was discharged and continues to have symptoms that seem to be getting worse. She was seen by her family doctor who did a chest x-ray which showed persistent pneumonia. Pt Subjective Complaint: shortness of breath, cough Onset (ago): day(s) Context: recent illness Severity: moderate Consistency/Duration: constant Improves with: nothing Worsens with: exertion - Related Data Home Medications Medication Instructions Recorded Confirmed Aspirin Enteric Coated [Aspirin EC] 81 mg PO DAILY 05/21/15 09/04/16 Acetaminophen with Codeine 1 each PO Q4H PRN 09/04/16 09/04/16 [Acetaminophen-Cod #4 Tablet] Ipratropium [place] 2 spray NS BID PRN 09/04/16 09/04/16 Losartan/HCTZ [Hyzaar 50-12.5 1 each PO DAILY 09/04/16 09/04/16 Tablet] Simvastatin [Zocor] 80 mg PO HS 09/04/16 09/04/16 Previous Rx's Medication Instructions Recorded Alprazolam [Xanax 1 MG Tablet] 1 mg PO TID PRN #40 tablet 09/07/16 Amoxicillin/Clavulanate [Augmentin] 875 mg PO BIDWM #10 tablet 09/07/16 Omeprazole [PriLOSEC] 40 mg PO DAILY #30 cap 09/07/16 Allergies Allergy/AdvReac Type Severity Reaction Status Date / Time ibuprofen [From Motrin] AdvReac Chest Pain Verified 09/04/16 17:19 Zolpidem [From Ambien] AdvReac Hallucinati Verified 09/04/16 17:19 ng Past Medical History - Past Medical History Medical history: Reports: arthritis, GERD, hyperlipidemia, hypertension, osteoporosis, renal disease Surgical history: Reports: colectomy, hysterectomy Psychiatric history: Reports: anxiety CHEMICAL DEPENDENCY NURSE history: Reports: no CHEMICAL DEPENDENCY NURSE history - Social History Smoking Status: Unknown if ever smoked Smokeless Tobacco Status: No Alcohol use: Reports: unknown Drug use: Reports: none Physical Exam - General Limitations: no limitations General appearance: alert, in no apparent distress Course - Reevaluation(s) Reevaluation #1: Admitted with pneumonia last week and possibly aspiration and states has been getting worse saw family doctor yesterday and today there is worse also more short of breath or coughing up material. A CT scan shows bilateral pneumonia. Symptoms are worsening per patient we'll admit for IV antibiotics. Time: 14:53 - Consultations Consultation #1: Discussed with Dr. Mckeon, admit. Time: 14:53 Vital Signs Temperature 97.8 F 09/22/16 12:11 Pulse Rate 64 09/22/16 12:11 Respiratory Rate 16 09/22/16 12:11 Blood Pressure 97/54 09/22/16 12:11 O2 Sat by Pulse Oximetry 97 09/22/16 12:11 Temperature 97.8 F 09/22/16 12:11 Pulse Rate 60 09/22/16 14:29 Respiratory Rate 16 09/22/16 14:39 Blood Pressure 103/53 09/22/16 14:29 O2 Sat by Pulse Oximetry 93 09/22/16 14:39 Oxygen Delivery Oxygen Delivery Room Air Shortness of Breath/Dyspnea - Lab Data Lab results reviewed: Yes I reviewed the patient's lab results. Result diagrams: 09/22/16 12:38 09/22/16 12:38 Lab Results 09/22/16 09/22/16 09/22/16 Range/Units 12:38 12:38 12:38 WBC 6.2 (4.3-11.1) K/mcL RBC 3.37 L (3.82-4.97) M/mcL Hgb 10.3 L (11.5-15.4) g/dL Hct 29.3 L (35.3-44.9) % MCV 86.9 (83.0-100.0) fL MCH 30.6 (28.0-33.3) pg MCHC 35.2 (31.6-35.5) g/dL RDW 12.3 (11.5-14.5) % Plt Count 175 (140-400) K/mcL MPV 8.2 L (9.4-12.4) fL Immature Gran % 0.5 (0-4) % Seg Neutrophils % 67.8 % Lymphocytes % 18.9 % Monocytes % 8.9 % Eosinophils % 3.4 % Basophils % 0.5 % Neutrophils # 4.2 (1.6-8.9) K/mcL Lymphocytes # 1.2 (0.6-4.6) K/mcL Monocytes # 0.6 (0.0-1.3) K/mcL Eosinophils # 0.2 (0.0-0.6) K/mcL Basophils # 0.0 (0.0-0.2) K/mcL Sodium 128 L (136-145) mEq/L Potassium 4.5 (3.5-4.5) mEq/L Chloride 93 L (98-109) mEq/L Carbon Dioxide 25 (19-29) mEq/L BUN 18 (7-20) mg/dL Creatinine 1.70 H (0.57-1.11) mg/dL Est GFR ( Amer) 36 L (> 60) Est GFR (Non-Af Amer) 30 L (> 60) BUN/Creatinine Ratio 11 (6-26) Glucose 93 (70-99) mg/dL Calculated Osmolality 268 L (280-300) Lactic Acid 1.2 (0.5-2.2) mmol/L Calcium 9.1 (8.6-10.8) mg/dL Troponin I (0-0.03) ng/mL B-Natriuretic Peptide (0-100) pg/mL 09/22/16 09/22/16 Range/Units 12:38 12:38 WBC (4.3-11.1) K/mcL RBC (3.82-4.97) M/mcL Hgb (11.5-15.4) g/dL Hct (35.3-44.9) % MCV (83.0-100.0) fL MCH (28.0-33.3) pg MCHC (31.6-35.5) g/dL RDW (11.5-14.5) % Plt Count (140-400) K/mcL MPV (9.4-12.4) fL Immature Gran % (0-4) % Seg Neutrophils % % Lymphocytes % % Monocytes % % Eosinophils % % Basophils % % Neutrophils # (1.6-8.9) K/mcL Lymphocytes # (0.6-4.6) K/mcL Monocytes # (0.0-1.3) K/mcL Eosinophils # (0.0-0.6) K/mcL Basophils # (0.0-0.2) K/mcL Sodium (136-145) mEq/L Potassium (3.5-4.5) mEq/L Chloride (98-109) mEq/L Carbon Dioxide (19-29) mEq/L BUN (7-20) mg/dL Creatinine (0.57-1.11) mg/dL Est GFR ( Amer) (> 60) Est GFR (Non-Af Amer) (> 60) BUN/Creatinine Ratio (6-26) Glucose (70-99) mg/dL Calculated Osmolality (280-300) Lactic Acid (0.5-2.2) mmol/L Calcium (8.6-10.8) mg/dL Troponin I 0.00 (0-0.03) ng/mL B-Natriuretic Peptide 11 (0-100) pg/mL - Radiology Data Radiology results reviewed: Yes I reviewed the patient's radiology results. Chest X-Ray 09/22/16 12:16 IMPRESSION: Persistent perihilar airspace disease. Findings compatible with pneumonia but should be followed to resolution. D/ / 09/22/2016 13:03:49 Odilon Gordon MD / carmen Interpreting Provider: Odilon Gordon MD Chest CT 09/22/16 13:25 IMPRESSION: Bilateral airspace disease, more extensive of the right lung with areas of centrilobular ground-glass opacification and peribronchovascular areas consolidation. Bronchial wall thickening is identified. Findings are most compatible with infectious airways disease. 7 mm right middle lobe noncalcified nodule, identified on the prior study, possibly obscured by airspace disease at the time. Follow-up is recommended as below. RECOMMENDATIONS: Fleischner Society guidelines for follow-up and management of incidentally detected pulmonary nodules: Single Solid Nodule: Nodule size equals 6-8 mm In a low-risk patient, CT at 6-12 months, then consider CT at 18-24 months. In a high-risk patient, CT at 6-12 months, then CT at 18-24 months. Scratch - Low risk patients include individuals with minimal or absent history of smoking and other known risk factors. - High risk patients include individuals with a history or smoking or known risk factors. Radiology 2017 http://pubs.rsna.org/doi/full/10.1148/radiol.6261203398 D/ / Peg Tracy Cha, MD / Peg Tracy Cha, MD Interpreting Provider: Peg Tracy Cha, MD - EKG Data EKG attestation: Yes I reviewed and interpreted this EKG. EKG shows normal: Reports: sinus rhythm Rate: Reports: normal Rhythm: Reports: NSR Interpretation: Reports: no acute changes
[2016-09-22 12:53] LABS: Basophils % 0.5 %; Eosinophils # 0.2 K/mcL (0.0-0.6); Eosinophils % 3.4 %; Hematocrit 29.3 % (35.3-44.9); Hemoglobin 10.3 g/dL (11.5-15.4); Immature Granulocytes % 0.5 % (0-4); Lymphocytes # 1.2 K/mcL (0.6-4.6); Lymphocytes % 18.9 %; Mean Corpuscular HGB Conc 35.2 g/dL (31.6-35.5); Mean Corpuscular Hemoglobin 30.6 pg (28.0-33.3); Mean Corpuscular Volume 86.9 fL (83.0-100.0); Mean Platelet Volume 8.2 fL (9.4-12.4); Monocytes # 0.6 K/mcL (0.0-1.3); Monocytes % 8.9 %; Neutrophils # 4.2 K/mcL (1.6-8.9); Platelet Count 175 K/mcL (140-400); Red Blood Count 3.37 M/mcL (3.82-4.97); Red Cell Distribution Width 12.3 % (11.5-14.5); Segmented Neutrophils % 67.8 %
[2016-09-22 13:06] LABS: Calcium 9.1 mg/dL (8.6-10.8); Potassium 4.5 mEq/L (3.5-4.5)
[2016-09-22] MEDS ORDERED: Ipratropium/Albuterol Neb 3 ML ONE (14:35)
[2016-09-22] MEDS ORDERED: Piperacillin/Tazobactam 3.375 GM in D5% in Water (Mini-Bag+) 100 ML IVPB ONE (14:50)
[2016-09-22] MEDS ORDERED: ALPRAZolam 0.5 MG TABLET PO ONE (15:39)
--- NOTE | 2016-09-22 17:48 | Internal Med History&Physical ---
Date of Encounter: 09/22/16 Time of Encounter: 16:48 Assessment and Plan (1) Pneumonia Current visit: No Status: Acute recently admitted for pneumonia possible aspiration. was dc 2 weeks ago on oral antibiotics, denies h/O COPD or asthma. reports persistence of symptoms with worsening sob and cough , fever [address] chest was done at ED that showed b/l airspace disease, ground glass opacification, bronchial wall thickening, compatible with infectious airways disease. will start zosyn and levoflox, will treat as HCAP, no clear risk factors for MRSA, will not start vanco at this time ,unclear if she aspirated again that made the pneumonia worse. last CXR showed rt. middle lobe pneumonia which looks like it has now worsened to b/l airspace disease. send for sputum gram stain and cx. will send for blood cx again Qualifiers: Pneumonia type: aspiration pneumonia Aspiration pneumonia type: due to regurgitated food Laterality: bilateral Lung location: lower lobe of lung Qualified Code(s): J69.0 - Pneumonitis due to inhalation of food and vomit (2) Chronic renal disease Current visit: No Status: Acute creatinine mildly elevated. will continue to monitor. Qualifiers: Chronic kidney disease stage: stage 3 (moderate) Qualified Code(s): N18.3 - Chronic kidney disease, stage 3 (moderate) (3) Acute respiratory failure with hypoxia Current visit: No Status: Acute 2/2 pneumonia Echocardiogram showed an ejection fraction of 65% with mild diastolic dysfunction , mild mitral regurgitation and tricuspid regurgitation on her last admission. Internal Medicine - H&P: HPI Chief complaint: sob Admitted From: Home Plans for Post Hospital Care: Home History of present illness: Ms. Chandler is a 71 year old female with a past medical history of chronic kidney disease stage III, hypertension, hyperlipidemia, GERD, osteoporosis presented to the hospital for worsening sob. she was recently admitted for pneumonia possible aspiration, started on IV antibiotics and was dc on oral antibiotics. She saw family doctor yesterday for persistent symptoms ,also more short of breath and coughing up more phlegm. she says she had fever up to 101 at home and was coughing bad with worsening sob. A CT scan done at ED shows bilateral pneumonia. family is upset that she was dc prematurely. she denies any chest pain, reports nausea and vomiting at home. Past Med Surg Social Fam HX - Past Medical History Medical history: arthritis, GERD, hyperlipidemia, hypertension, osteoporosis, renal disease Psychiatric history: anxiety - Past Surgical History Surgical History: colectomy, hysterectomy - Social History Smoking Status: Unknown if ever smoked Smokeless Tobacco Status: No Alcohol use: unknown Drug use: none - Family History Mother History Unknown: Yes Father History Unknown: Yes Internal Medicine - H&P: Meds Aspirin Enteric Coated [Aspirin EC] 81 mg PO DAILY 05/21/15 [History] Acetaminophen with Codeine [Acetaminophen-Cod #4 Tablet] 1 each PO Q4H PRN 09/04 [History] Ipratropium [place] 2 spray NS BID PRN 09/04/16 [History] Losartan/HCTZ [Hyzaar 50-12.5 Tablet] 1 each PO DAILY 09/04/16 [History] Simvastatin [Zocor] 80 mg PO HS 09/04/16 [History] Alprazolam [Xanax 1 MG Tablet] 1 mg PO TID PRN #40 tablet 09/07/16 [Rx] Amoxicillin/Clavulanate [Augmentin] 875 mg PO BIDWM #10 tablet 09/07/16 [Rx] Omeprazole [PriLOSEC] 40 mg PO DAILY #30 cap 09/07/16 [Rx] Biotin [Chidi Biotin] 10,000 mcg PO DAILY 09/22/16 [History] Cholecalciferol (Vitamin D3) [Vitamin D3] 4,000 unit PO DAILY 09/22/16 [History] Cyanocobalamin (Vitamin B-12) [Vitamin B-12] 5,000 mcg PO DAILY 09/22/16 [ History] Allergies ibuprofen [From Motrin] Adverse Reaction (Verified 09/22/16 15:17) Chest Pain Zolpidem [From Ambien] Adverse Reaction (Verified 09/22/16 15:17) Hallucinating All Systems PM: A 10-system review of systems was performed and is negative for pertinent findings except as documented above in the HPI. - Constitutional Vitals: Temp Pulse Resp BP Pulse Ox 97.8 F 60 18 103/53 93 09/22/16 12:11 09/22/16 14:29 09/22/16 15:49 09/22/16 15:49 09/22/16 14:39 General appearance: Present: A&O X 3, no acute distress Exam: neck- supple chest- b/l coarse breath sounds, no wheezing or creptns cvs-s1 and s2, no mr/g/ abd-soft, non tender, bs are present ext- no edema neuro- no focal neuro defecits. Internal Med - H&P Results - Labs CBC & Chem 7: 09/22/16 12:38 09/22/16 12:38
[2016-09-22] MEDS ORDERED: Naloxone 0.4 MG/ML INJ IVP PRN (18:06)
[2016-09-22] MEDS ORDERED: Ondansetron 4 MG/2 ML VIAL IVP PRN (18:06)
[2016-09-22] MEDS ORDERED: Levofloxacin 500 MG/100 ML 500 MG/100 ML BAG IVPB SCH (19:00)
[2016-09-22] MEDS: Ipratropium/Albuterol Neb 3 ML IH SCH ×2 (21:55→23:27)
[2016-09-22] MEDS ORDERED: Acetaminophen 325 MG TABLET PO PRN (22:07)
[2016-09-22] MEDS: ALPRAZolam 1 MG TABLET PO PRN (22:10)
[2016-09-23] MEDS ORDERED: Acetaminophen 325 MG TABLET PO SCH
[2016-09-23] MEDS: Piperacillin/Tazobactam 3.375 GM in D5% in Water (Mini-Bag+) 100 ML IVPB SCH ×4 (00:31→23:53)
[2016-09-23] MEDS ORDERED: *HR* Morphine 2 MG/ML SYRINGE IVP PRN (00:46)
[2016-09-23] MEDS: Ipratropium/Albuterol Neb 3 ML IH SCH ×2 (04:00→07:53)
[2016-09-23 04:08] LABS: Basophils % 0.2 %; Eosinophils # 0.2 K/mcL (0.0-0.6); Eosinophils % 3.4 %; Hematocrit 23.4 % (35.3-44.9); Immature Granulocytes % 0.7 % (0-4); Lymphocytes # 1.2 K/mcL (0.6-4.6); Lymphocytes % 27.3 %; Mean Corpuscular Hemoglobin 29.9 pg (28.0-33.3); Mean Corpuscular Volume 85.4 fL (83.0-100.0); Mean Platelet Volume 8.9 fL (9.4-12.4); Monocytes # 0.5 K/mcL (0.0-1.3); Monocytes % 10.6 %; Neutrophils # 2.6 K/mcL (1.6-8.9); Platelet Count 159 K/mcL (140-400); Red Blood Count 2.74 M/mcL (3.82-4.97); Red Cell Distribution Width 12.2 % (11.5-14.5); Segmented Neutrophils % 57.8 %
[2016-09-23 04:19] LABS: Hemoglobin 8.2 g/dL (11.5-15.4)
[2016-09-23 04:20] LABS: Calcium 8.6 mg/dL (8.6-10.8); Magnesium 1.3 mg/dL (1.6-2.6); Phosphorous 3.8 mg/dL (2.3-4.7)
[2016-09-23] MEDS ORDERED: *HR* Enoxaparin 30 MG/0.3 ML SYRINGE SQ SCH (06:00)
[2016-09-23] MEDS ORDERED: Magnesium Sulfate 2 GM in D5% in Water 100 ML IVPB ONE (08:46)
[2016-09-23] MEDS: Aspirin Enteric Coated 81 MG Tablet PO SCH (08:49)
[2016-09-23] MEDS ORDERED: Ipratropium/Albuterol Neb 3 ML IH PRN (10:49)
[2016-09-23] MEDS ORDERED: Sodium Chloride for inhalation 3 ML VIAL IH ONE (11:00)
[2016-09-23 13:06] LABS: Adenovirus Not Detected (Not Detect); Bordetella Pertussis Not Detected (Not Detect); Chlamydophila pneumoniae Not Detected (Not Detect); Coronavirus 229E Not Detected (Not Detect); Coronavirus HKU1 Not Detected (Not Detect); Coronavirus NL63 Not Detected (Not Detect); Coronavirus OC43 Not Detected (Not Detect); Human Metapneumovirus Not Detected (Not Detect); Human Rhinovirus/Enterovirus Not Detected (Not Detect); Influenza A Subtype 2009 H1 Not Detected (Not Detect); Influenza A Untypeable Not Detected (Not Detect); Influenza B Not Detected (Not Detect); Mycoplasma pneumoniae Not Detected (Not Detect); Parainfluenza Virus 1 Not Detected (Not Detect); Parainfluenza Virus 2 Not Detected (Not Detect); Parainfluenza Virus 3 ***DETECTED*** (Not Detect); Parainfluenza Virus 4 Not Detected (Not Detect); Respiratory Syncytial Virus Not Detected (Not Detect)
--- NOTE | 2016-09-23 13:23 | Internal Med Progress Note ---
<Callum Patterson - Last Filed: 09/23/16 16:09> Date of Encounter: 09/23/16 Time of Encounter: 10:15 - Assessment and plan (1) Pneumonia Current Visit: Yes Status: Acute Assessment and plan: -Patient was recently admitted for pneumonia secondary to possible aspiration. She was discharged 2 weeks ago on oral Augmentin. -CXR done in the ED showed persistent perihilar airspace disease, compatible with pneumonia. -Chest CT done here in the ED showed bilateral airspace disease, more extensive on the right along with areas of centrilobular groundglass opacification and peribronchial bronchovascular area of consolidation. Bronchial wall thickening was identified. These findings are most compatible with an infectious airway disease per report. Additionally a 7 mm right middle lobe noncalcified nodule was also identified on the prior study. I also rviewed both of these imaging studies myself. Impressive for diffuse ground glass opacifications. mostly in the right lung. continue Levaquin and Zosyn. -We will obtain an induced sputum sample for Gram stain and cultures to help identify causative agent. I will also order inflammatory markers. No history significant for autoimmune disease. However very dry sounding crackles. May consider ANESTHESIA TECHNICIAN if not improving If Swallow study normal will consider consulting pulmonology for bronchoscopy. Qualifiers: Pneumonia type: due to unspecified organism Laterality: bilateral Lung location: unspecified part of lung Qualified Code(s): J18.9 - Pneumonia, unspecified organism (2) Chronic renal disease Current Visit: No Status: Acute Assessment and plan: -Patient has a history of CKD stage III/IV with a baseline creatinine between 2.0-3.0 and a baseline BUN between 30-40. -Creatinine is slightly elevated today from 1.70 yesterday to 1.81 today. -This could be secondary to dehydration versus recurrent pneumonia process. -We will continue to monitor avoid nephrotoxins adjust antibiotics to renal function. Qualifiers: Chronic kidney disease stage: stage 3 (moderate) Qualified Code(s): N18.3 - Chronic kidney disease, stage 3 (moderate) (3) Anemia Current Visit: No Status: Acute Assessment and plan: -Current hemoglobin is 8.2 which is down from 10.3 yesterday. -This appears to be a normocytic anemia in the presence of CKD stage III, and pneumonia. normal Hematinics. -Patient denies any signs of bleeding. Likely from CKD. May consider Erythropoeitin in the future. Qualifiers: Qualified Code(s): D64.9 - Anemia, unspecified (4) Hyponatremia Current Visit: No Status: Acute Assessment and plan: -Patient is currently hyponatremic with a sodium level of 126. -There do not appear to be any medications contributing to this hyponatremia. Euvolemic Asymptomatic. We order labs for initial workup. (5) Hypomagnesemia Current Visit: No Status: Acute Assessment and plan: -Patient had a magnesium level of 1.3 this morning. She was given 2 Grams of magnesium sulfate this morning -We will recheck a magnesium level in the morning and continue to monitor. (6) GERD (gastroesophageal reflux disease) Current Visit: Yes Status: Acute Assessment and plan: -Continue home medication of 40 mg PO of omeprazole. Pineda history of hiatal hernia. Qualifiers: Qualified Code(s): K21.9 - Gastro-esophageal reflux disease without esophagitis (7) HLD (hyperlipidemia) Current Visit: Yes Status: Acute Assessment and plan: -Continue home medication of simvastatin 80 mg PO. Qualifiers: Qualified Code(s): E78.5 - Hyperlipidemia, unspecified (8) DVT prophylaxis Current Visit: No Status: Acute Assessment and plan: -Currently on heparin 5000 units SQ q12 hours - Subjective Interval history: Patient was seen and examined at bedside this morning. She denies any new issues. She does state that she still has an intermittently productive cough of yellow sputum and has mild shortness of breath this morning. Additionally, does admit to nausea but no vomiting this morning. She denies any current fever , chills, chest pain, vomiting, or skin rashes. Denies any recent travel, denies owning any pets, denies any potential workplace exposures. - Constitutional Vitals: Temp Pulse Resp BP Pulse Ox 97.9 F 55 20 99/50 94 09/23/16 11:31 09/23/16 11:31 09/23/16 11:31 09/23/16 11:31 09/23/16 11:31 General appearance: Present: A&O X 3, no acute distress, answers questions appropriately - Head Head exam: Present: atraumatic, normal inspection, normocephalic - Eye Eye exam: Present: EOMI, normal appearance, PERRL, sclera anicteric. Absent: conjunctival injection, nystagmus, scleral icterus Pupils: Present: PERRL - ENT ENT exam: Present: mucous membranes moist, normal exam - Neck Neck exam general surgery: Present: normal inspection, trachea midline. Absent : lymphadenopathy, tenderness, thyromegaly - Respiratory Additional comments: Patient has a normal effort of breathing. She speaks in full sentences. Normal rise and expanse of the chest wall bilaterally. She has " dry sounding" audible crepitus throughout all posterior lung hidalgo. - Cardiovascular Cardiovascular exam: Present: bradycardia, +S1, +S2. Absent: clicks, diastolic murmur, gallop, systolic murmur - GI/Abdominal GI/Abdominal exam: Present: normal bowel sounds, soft, no peritoneal signs. Absent: distended, tenderness - Neurological Exam Neurological exam: Present: oriented X3. Absent: facial droop, speech deficit - Skin Skin exam: Absent: abrasion, petechiae, rash Internal Medicine: Result - Labs CBC & Chem 7: 09/23/16 03:00 09/23/16 03:00 Labs: Short CBC 09/23/16 Range/Units 03:00 WBC 4.4 (4.3-11.1) K/mcL Hgb 8.2 L D (11.5-15.4) g/dL Hct 23.4 L (35.3-44.9) % Plt Count 159 (140-400) K/mcL Neutrophils # 2.6 (1.6-8.9) K/mcL BMP 09/23/16 03:00 Sodium 126 L Potassium 4.0 Chloride 90 L Carbon Dioxide 24 BUN 22 H Creatinine 1.81 H Glucose 103 H Calcium 8.6 Consult Discharge Plan - Plan Referrals: Tenzin Escobedo Jr, MD [Primary Care Provider] - (Web Request 09/23/2016) <Lee Bonilla - Last Filed: 09/23/16 16:20> Date of Encounter: 09/23/16 - Constitutional Vitals: Temp Pulse Resp BP Pulse Ox 98.1 F 55 16 105/52 96 09/23/16 14:55 09/23/16 14:55 09/23/16 14:55 09/23/16 14:55 09/23/16 14:55 Internal Medicine: Result - Labs CBC & Chem 7: 09/23/16 03:00 09/23/16 03:00 Labs: Short CBC 09/23/16 Range/Units 03:00 WBC 4.4 (4.3-11.1) K/mcL Hgb 8.2 L D (11.5-15.4) g/dL Hct 23.4 L (35.3-44.9) % Plt Count 159 (140-400) K/mcL Neutrophils # 2.6 (1.6-8.9) K/mcL BMP 09/23/16 03:00 Sodium 126 L Potassium 4.0 Chloride 90 L Carbon Dioxide 24 BUN 22 H Creatinine 1.81 H Glucose 103 H Calcium 8.6 - Impressions Impressions Videofluoroscopic Swallow 09/23/16 08:04 IMPRESSION: Swallowing mechanism grossly within normal limits without evidence of aspiration. Please see separate speech pathology report for full discussion of findings and recommendations. D/ / Nikolas Rankin MD / Nikolas Rankin MD Interpreting Provider: Nikolas Rankin MD - Attending Attestation I examined this patient and my medical decision-making was reviewed with the CURING OVEN TENDER/PA/Advanced Practice Nurse/Resident Physician. I agree with the documented findings, disposition and treatment plan as described except to the extent set forth below. Continue antibiotics, MBS today.
[2016-09-23] MEDS: ALPRAZolam 1 MG TABLET PO PRN ×2 (14:19→22:13)
[2016-09-23 14:33] LABS: Uric Acid 6.6 mg/dL (2.6-6.0)
[2016-09-23 14:53] LABS: Thyroid Stimulating Hormone 1.767 mcIU/mL (0.350-4.840)
[2016-09-23] MEDS ORDERED: Sodium Chloride for inhalation 15 ML INHSOL IH ONE (17:12)
[2016-09-23] MEDS: *HR* Heparin 5,000 UNIT/ML VIAL SQ SCH (17:13)
[2016-09-23] MEDS ORDERED: *HR* HYDROcodone/Acet 5/325 mg TABLET PO PRN (17:13)
[2016-09-23] MEDS ORDERED: 3% Sodium Chloride Inhalation 4 ML VIAL.NEB IH ONE (18:16)
[2016-09-23] MEDS: Levofloxacin 750 MG/150 ML 750 MG/150 ML BAG IVPB SCH (21:08)
[2016-09-23] MEDS ORDERED: *HR* HYDROmorphone (PF) 1 MG/ML SYRINGE IVP PRN (23:07)
[2016-09-24 00:28] LABS: Hematocrit 24.1 % (35.3-44.9); Hemoglobin 8.7 g/dL (11.5-15.4)
[2016-09-24 00:40] LABS: Calcium 8.6 mg/dL (8.6-10.8); Potassium 3.8 mEq/L (3.5-4.5)
[2016-09-24] MEDS ORDERED: *HR* HYDROcodone/Acet 5/325 mg TABLET PO PRN (00:41)
[2016-09-24 04:04] LABS: Basophils % 0.5 %; Eosinophils # 0.4 K/mcL (0.0-0.6); Hematocrit 23.9 % (35.3-44.9); Hemoglobin 8.5 g/dL (11.5-15.4); Immature Granulocytes % 0.5 % (0-4); Lymphocytes % 35.9 %; Mean Corpuscular HGB Conc 35.6 g/dL (31.6-35.5); Mean Corpuscular Hemoglobin 30.2 pg (28.0-33.3); Mean Corpuscular Volume 85.1 fL (83.0-100.0); Mean Platelet Volume 8.8 fL (9.4-12.4); Monocytes # 0.4 K/mcL (0.0-1.3); Monocytes % 8.8 %; Neutrophils # 1.9 K/mcL (1.6-8.9); Platelet Count 158 K/mcL (140-400); Red Blood Count 2.81 M/mcL (3.82-4.97); Segmented Neutrophils % 44.3 %
[2016-09-24 04:09] LABS: Lymphocytes # 1.5 K/mcL (0.6-4.6)
[2016-09-24 04:22] LABS: Calcium 8.7 mg/dL (8.6-10.8); Chol/HDL Ratio 3.8 (0-4.9); Potassium 3.9 mEq/L (3.5-4.5)
[2016-09-24 04:39] LABS: Platelet Estimate Normal (Normal); Reactive Lymphocytes Present (Not Present)
[2016-09-24] MEDS: *HR* Heparin 5,000 UNIT/ML VIAL SQ SCH ×2 (05:17→17:29)
--- NOTE | 2016-09-24 06:19 | Electrocardiograph Report ---
[place] [id number] Test Date: 2016-09-22 Pat Name: Ebonie Chandler Department: 105 Room: 2A23 Gender: F Building Construction Superintendent: : [id number] Requested By: Srini Posada Order Number: [id number] Reading MD: Jeffery Gary MD Measurements Intervals [place] Rate: 62 P: 12 MI: 197 QRS: 18 QRSD: 94 T: 38 QT: 401 QTc: 406 Interpretive Statements SINUS RHYTHM WITH PACS Electronically Signed On 09-24-2016 6:17:43 EDT by Jeffery Gary MD
[2016-09-24] MEDS: Piperacillin/Tazobactam 3.375 GM in D5% in Water (Mini-Bag+) 100 ML IVPB SCH ×2 (07:58→17:27)
[2016-09-24] MEDS: Aspirin Enteric Coated 81 MG Tablet PO SCH (08:00)
[2016-09-24] MEDS ORDERED: Acetaminophen 325 MG TABLET PO PRN (08:18)
--- NOTE | 2016-09-24 10:11 | Internal Med Progress Note ---
Date of Encounter: 09/24/16 Time of Encounter: 10:11 - Assessment and plan (1) Hyponatremia Current Visit: No Status: Acute Assessment and plan: Hypoosmolar hyponatremia TSH WNL Lipid panel unremarkable Uric acid elevated at 6.6 Na has been stable around 125 Will continue to monitor (2) Pneumonia Current Visit: Yes Status: Acute Assessment and plan: -Patient was recently admitted for pneumonia secondary to possible aspiration. She was discharged 2 weeks ago on oral Augmentin. -CXR done in the ED showed persistent perihilar airspace disease, compatible with pneumonia. -Chest CT done here in the ED showed bilateral airspace disease, more extensive on the right along with areas of centrilobular groundglass opacification and peribronchial bronchovascular area of consolidation. Bronchial wall thickening was identified. These findings are most compatible with an infectious airway disease per report. Additionally a 7 mm right middle lobe noncalcified nodule was also identified on the prior study. Continue Zosyn and Levoflox Follow sputum culture Patient may need pulm eval if symtpoms persists She currently needs no o2 supplement Qualifiers: Pneumonia type: due to unspecified organism Laterality: bilateral Lung location: unspecified part of lung Qualified Code(s): J18.9 - Pneumonia, unspecified organism (3) Anemia Current Visit: Yes Status: Acute Assessment and plan: Chronic, stable Qualifiers: Anemia type: iron deficiency Iron deficiency anemia type: unspecified iron deficiency Qualified Code(s): D50.9 - Iron deficiency anemia, unspecified (4) Hypomagnesemia Current Visit: No Status: Acute Assessment and plan: .1.3 09/23 Replaced Monitor repeat a.m (5) GERD (gastroesophageal reflux disease) Current Visit: Yes Status: Acute Assessment and plan: -Continue home medication of 40 mg PO of omeprazole. Pineda history of hiatal hernia. Qualifiers: Esophagitis presence: esophagitis presence not specified Qualified Code(s) : K21.9 - Gastro-esophageal reflux disease without esophagitis (6) HLD (hyperlipidemia) Current Visit: Yes Status: Acute Assessment and plan: -Continue home medication of simvastatin 80 mg PO. Qualifiers: Hyperlipidemia type: unspecified Qualified Code(s): E78.5 - Hyperlipidemia , unspecified - Subjective Interval history: Seen at bedside Denies new complains She is coughing but is unable to produce sputum Videofluoroscopy is unremarkable PULLBOAT ENGINEER review noted Resp panel shows positive parainfluenza Of note, patient has been bradycardic since admission, she is not on BB, TSH is WNL - Constitutional Vitals: Temp Pulse Resp BP Pulse Ox 97.6 F 53 18 105/53 94 09/24/16 07:47 09/24/16 07:47 09/24/16 07:47 09/24/16 07:47 09/24/16 08:02 General appearance: Present: A&O X 3, no acute distress, answers questions appropriately - Head Head exam: Present: atraumatic, normocephalic - Eye Eye exam: Present: PERRL, conjuntiva pink, sclera anicteric Pupils: Present: PERRL - Neck Neck exam general surgery: Present: supple, trachea midline. Absent: lymphadenopathy - Respiratory Respiratory exam: Present: CTAB. Absent: accessory muscle use, rales, rhonchi, wheezes - Cardiovascular Cardiovascular exam: Present: RRR, +S1, +S2. Absent: diastolic murmur, gallop, rubs, systolic murmur - GI/Abdominal GI/Abdominal exam: Present: normal bowel sounds, soft, no peritoneal signs. Absent: distended, tenderness - Extremities Exam Extremities exam: Present: warm, radial pulses palpable and symetrical. Absent : calf tenderness, cyanotic, pedal edema - Neurological Exam Neurological exam: Present: alert, CN II-XII intact, oriented X3, no focal deficits. Absent: pronater drift, facial droop, speech deficit - Skin Skin exam: Present: dry, intact Internal Medicine: Result - Labs CBC & Chem 7: 09/24/16 03:39 09/24/16 03:39 Labs: Short CBC 09/24/16 09/24/16 Range/Units 00:06 03:39 WBC 4.3 (4.3-11.1) K/mcL Hgb 8.7 L 8.5 L (11.5-15.4) g/dL Hct 24.1 L 23.9 L (35.3-44.9) % Plt Count 158 (140-400) K/mcL Neutrophils # 1.9 (1.6-8.9) K/mcL BMP 09/24/16 09/24/16 00:06 03:39 Sodium 125 L 127 L Potassium 3.8 3.9 Chloride 92 L 93 L Carbon Dioxide 24 25 BUN 17 17 Creatinine 1.78 H 1.77 H Glucose 106 H 107 H Calcium 8.6 8.7 Consult Discharge Plan - Plan Referrals: Tenzin Escobedo Jr, MD [Primary Care Provider] - 09/30/16 12:00 pm ()
[2016-09-24] MEDS: ALPRAZolam 1 MG TABLET PO PRN ×2 (13:01→22:05)
[2016-09-24] MEDS: *HR* HYDROcodone/Acet 5/325 mg TABLET PO PRN (22:05)
[2016-09-25] MEDS: Piperacillin/Tazobactam 3.375 GM in D5% in Water (Mini-Bag+) 100 ML IVPB SCH ×3 (01:20→16:36)
[2016-09-25] MEDS: *HR* Heparin 5,000 UNIT/ML VIAL SQ SCH ×2 (05:27→16:37)
[2016-09-25] MEDS: Aspirin Enteric Coated 81 MG Tablet PO SCH (08:21)
[2016-09-25 08:42] LABS: Basophils % 0.6 %; Eosinophils # 0.7 K/mcL (0.0-0.6); Eosinophils % 13.8 %; Hematocrit 25.7 % (35.3-44.9); Immature Granulocytes % 0.6 % (0-4); Immature Platelets 2.7 % (1.1-6.1); Lymphocytes # 1.5 K/mcL (0.6-4.6); Lymphocytes % 30.1 %; Mean Corpuscular Hemoglobin 30.1 pg (28.0-33.3); Mean Platelet Volume 9.1 fL (9.4-12.4); Monocytes # 0.4 K/mcL (0.0-1.3); Monocytes % 6.9 %; Neutrophils # 2.5 K/mcL (1.6-8.9); Platelet Count 203 K/mcL (140-400); Red Blood Count 2.99 M/mcL (3.82-4.97); Red Cell Distribution Width 12.2 % (11.5-14.5)
[2016-09-25 08:55] LABS: Potassium 3.5 mEq/L (3.5-4.5)
[2016-09-25 09:05] LABS: Platelet Estimate Normal (Normal)
[2016-09-25] MEDS ORDERED: Albuterol 2.5 MG/3 ML NEBULIZER IH ONE (11:54)
--- NOTE | 2016-09-25 11:58 | Internal Med Progress Note ---
Date of Encounter: 09/25/16 Time of Encounter: 11:57 - Assessment and plan (1) Hyponatremia Current Visit: No Status: Acute Assessment and plan: Hypoosmolar hyponatremia, sodium slightly improved today TSH WNL Lipid panel unremarkable Uric acid elevated at 6.6 Will continue to monitor (2) Pneumonia Current Visit: Yes Status: Acute Assessment and plan: Patient was recently admitted for pneumonia secondary to possible aspiration. She was discharged 2 weeks ago on oral Augmentin. Chest CT done here in the ED showed bilateral airspace disease, more extensive on the right along with areas of centrilobular groundglass opacification and peribronchial bronchovascular area of consolidation. Bronchial wall thickening was identified. These findings are most compatible with an infectious airway disease per report. Additionally a 7 mm right middle lobe noncalcified nodule was also identified on the prior study. Continue Zosyn and Levoflox, Day 4 Sputum culture with yeasts, await final report Add mucolytic to current regimen Anticipate d/c a.m, if sputum culture report is final and if patient makes clinical improvement Qualifiers: Pneumonia type: due to unspecified organism Laterality: bilateral Lung location: unspecified part of lung Qualified Code(s): J18.9 - Pneumonia, unspecified organism (3) Anemia Current Visit: Yes Status: Chronic Assessment and plan: Chronic, stable Qualifiers: Anemia type: iron deficiency Iron deficiency anemia type: unspecified iron deficiency Qualified Code(s): D50.9 - Iron deficiency anemia, unspecified (4) Hypomagnesemia Current Visit: Yes Status: Acute Assessment and plan: .1.3 09/23, 2.1 today Replaced (5) GERD (gastroesophageal reflux disease) Current Visit: Yes Status: Acute Assessment and plan: Continue PPI Qualifiers: Esophagitis presence: esophagitis presence not specified Qualified Code(s) : K21.9 - Gastro-esophageal reflux disease without esophagitis (6) HLD (hyperlipidemia) Current Visit: Yes Status: Acute Assessment and plan: -Continue home medication of simvastatin 80 mg PO. Qualifiers: Hyperlipidemia type: unspecified Qualified Code(s): E78.5 - Hyperlipidemia , unspecified (7) Anxiety Current Visit: Yes Status: Chronic Assessment and plan: Continue Xanax - Subjective Interval history: Seen at bedside with daughter Denies new complains, states she is still unable to produce sputum She has not had any increasing O2 requirement and has been afebrile HR has improved Videofluoroscopy was unremarkable CATALOGUE ILLUSTRATOR review noted, Resp panel shows positive parainfluenza Sputum culture with abundant yeasts Urine legionella/strep negative - Constitutional Vitals: Temp Pulse Resp BP Pulse Ox 97.9 F 58 17 122/70 95 09/25/16 11:43 09/25/16 11:43 09/25/16 11:43 09/25/16 11:43 09/25/16 11:43 General appearance: Present: A&O X 3, pleasant, no acute distress, answers questions appropriately - Head Head exam: Present: atraumatic, normocephalic - Eye Eye exam: Present: PERRL, conjuntiva pink, sclera anicteric Pupils: Present: PERRL - Neck Neck exam general surgery: Present: supple, trachea midline. Absent: lymphadenopathy - Respiratory Respiratory exam: Present: CTAB. Absent: accessory muscle use, rales, rhonchi, wheezes - Cardiovascular Cardiovascular exam: Present: RRR, +S1, +S2. Absent: diastolic murmur, gallop, rubs, systolic murmur - GI/Abdominal GI/Abdominal exam: Present: normal bowel sounds, soft, no peritoneal signs. Absent: distended, tenderness - Extremities Exam Extremities exam: Present: warm, radial pulses palpable and symetrical. Absent : calf tenderness, cyanotic, pedal edema - Neurological Exam Neurological exam: Present: alert, CN II-XII intact, oriented X3, no focal deficits. Absent: pronater drift, facial droop, speech deficit - Skin Skin exam: Present: dry, intact Internal Medicine: Result - Labs CBC & Chem 7: 09/25/16 08:19 09/25/16 08:19 Labs: Short CBC 09/25/16 Range/Units 08:19 WBC 5.1 (4.3-11.1) K/mcL Hgb 9.0 L (11.5-15.4) g/dL Hct 25.7 L (35.3-44.9) % Plt Count 203 (140-400) K/mcL Neutrophils # 2.5 (1.6-8.9) K/mcL BMP 09/25/16 08:19 Sodium 129 L Potassium 3.5 Chloride 97 L Carbon Dioxide 25 BUN 11 Creatinine 1.64 H Glucose 134 H Calcium 9.0 Consult Discharge Plan - Plan Referrals: Tenzin Escobedo Jr, MD [Primary Care Provider] - 09/30/16 12:00 pm ()
[2016-09-25] MEDS: ALPRAZolam 1 MG TABLET PO PRN ×2 (12:22→21:51)
[2016-09-25] MEDS: Levofloxacin 750 MG/150 ML 750 MG/150 ML BAG IVPB SCH (20:12)
[2016-09-26] MEDS ORDERED: Melatonin 3 MG TABLET PO ONE (00:49)
[2016-09-26] MEDS: Piperacillin/Tazobactam 3.375 GM in D5% in Water (Mini-Bag+) 100 ML IVPB SCH ×2 (01:14→07:50)
[2016-09-26] MEDS: *HR* HYDROcodone/Acet 5/325 mg TABLET PO PRN (01:15)
[2016-09-26] MEDS: *HR* Heparin 5,000 UNIT/ML VIAL SQ SCH (06:42)
[2016-09-26] MEDS: Aspirin Enteric Coated 81 MG Tablet PO SCH (07:50)
[2016-09-26] MEDS: ALPRAZolam 1 MG TABLET PO PRN (09:19)
[2016-09-26 11:28] VITALS: BP 136/79
--- NOTE | 2016-09-26 13:10 | Discharge Summary ---
Date of Encounter: 09/26/16 Time of Encounter: 13:02 - Discharge Diagnosis (1) Hyponatremia Priority: Primary Status: Acute (2) Pneumonia Priority: Primary Status: Acute Qualifiers: Pneumonia type: due to unspecified organism Laterality: bilateral Lung location: unspecified part of lung Qualified Code(s): J18.9 - Pneumonia, unspecified organism (3) Anemia Priority: Secondary Status: Chronic Qualifiers: Anemia type: iron deficiency Iron deficiency anemia type: unspecified iron deficiency Qualified Code(s): D50.9 - Iron deficiency anemia, unspecified (4) Hypomagnesemia Priority: Secondary Status: Resolved (5) GERD (gastroesophageal reflux disease) Priority: Secondary Status: Chronic Qualifiers: Esophagitis presence: esophagitis presence not specified Qualified Code(s) : K21.9 - Gastro-esophageal reflux disease without esophagitis (6) HLD (hyperlipidemia) Priority: Secondary Status: Chronic Qualifiers: Hyperlipidemia type: unspecified Qualified Code(s): E78.5 - Hyperlipidemia , unspecified (7) Anxiety Priority: Secondary Status: Chronic - Discharge Medications Prescriptions: Cefdinir [Omnicef] 300 mg PO BID #16 capsule GuaiFENesin ER [Mucinex] 600 mg PO BID #10 tbbp.12hr Levofloxacin [Levaquin] 750 mg PO Q48H #2 tablet Home Medications: Aspirin Enteric Coated [Aspirin EC] 81 mg PO DAILY 05/21/15 [History] Acetaminophen with Codeine [Acetaminophen-Cod #4 Tablet] 1 each PO Q4H PRN 09/04 [History] Ipratropium [place] 2 spray NS BID PRN 09/04/16 [History] Losartan/HCTZ [Hyzaar 50-12.5 Tablet] 1 each PO DAILY 09/04/16 [History] Simvastatin [Zocor] 80 mg PO HS 09/04/16 [History] Alprazolam [Xanax 1 MG Tablet] 1 mg PO TID PRN #40 tablet 09/07/16 [Rx] Omeprazole [PriLOSEC] 40 mg PO DAILY #30 cap 09/07/16 [Rx] Biotin [Chidi Biotin] 10,000 mcg PO DAILY 09/22/16 [History] Cholecalciferol (Vitamin D3) [Vitamin D3] 4,000 unit PO DAILY 09/22/16 [History] Cyanocobalamin (Vitamin B-12) [Vitamin B-12] 5,000 mcg PO DAILY 09/22/16 [ History] Cefdinir [Omnicef] 300 mg PO BID #16 capsule 09/26/16 [Rx] GuaiFENesin ER [Mucinex] 600 mg PO BID #10 tbbp.12hr 09/26/16 [Rx] Levofloxacin [Levaquin] 750 mg PO Q48H #2 tablet 09/26/16 [Rx] Allergies/Adverse Reactions: Allergies ibuprofen [From Motrin] Adverse Reaction (Verified 09/22/16 15:17) Chest Pain Zolpidem [From Ambien] Adverse Reaction (Verified 09/22/16 15:17) Hallucinating Date of admission: 09/23/16 16:34 Primary care physician: Tenzin Escobedo Jr, MD Discharging clinician: Walter Henning Anticipated date of discharge: 09/26/16 - Patient Status Disposition: Home, Self-Care Condition: Fair Functional capacity at discharge: independent ambulation Overall status at discharge: patient is progressing back to baseline - Discharge Instructions Follow Up With: Tenzin Escobedo Jr, MD [Primary Care Provider] - 09/30/16 12:00 pm () - Diet and Activity Activity: resume usual activities as tolerated Diet: advance to your usual diet Interval History: See below Hospital course: Ms. Chandler is a 71 year old female admitted for management of pneumonia, recurrent , suspected HCAP, organism unknown She was recently discharged with oral Augmentin and represented with same symptoms, reporting she is not improving She has a suspicion of aspiration pneumonia, speech and swallow evaluation did not reveal any swallowing difficulty and Videofluoroscopy was normal Chest CT done here in the ED showed bilateral airspace disease, more extensive on the right along with areas of centrilobular groundglass opacification and peribronchial bronchovascular area of consolidation. Bronchial wall thickening was identified. These findings are most compatible with an infectious airway disease per report. Additionally a 7 mm right middle lobe noncalcified nodule was also identified on the prior study. She did not have fever or leukocytosis throughout her stay. Urine legionella Ag and strep Ag were negative, sputum culture grew yeast species, no bacterial growth. She received Zosyn and Levoflox for 5 days, she did not have any risks for MRSA , hence she did not receive Vancomycin There was concern on admission for hypoxia, patient has onot had any O2 requirements in the past 72 hours Work up on admission also revealed hypoosmolar hyponatremia which is also possibly due to medications, hypovolemia, her renal function was otherwise stable and she is asymptomatic TSH was WNL and lipid panel was unremarkable She is stable to be discharged home to complete 2 more days of levoloxacin and 8 more days of 3rd generation cephalosporin Patient is educated about need for compliance with her antibiotics and need for repeat Chest CT to follow up with PCP 2-3 weeks after completion of antibiotics , repeat Chest CT has been scheduled Plan of care discussed, verbalized understanding - Time Spent with Patient Total time spent providing and/or coordinating discharge services: Less than 30 minutes - Constitutional Vitals: Temp Pulse Resp BP Pulse Ox 98.3 F 52 17 136/79 95 09/26/16 11:22 09/26/16 11:22 09/26/16 11:22 09/26/16 11:22 09/26/16 11:22 General appearance: Present: A&O X 3, pleasant, no acute distress, answers questions appropriately - Head Head exam: Present: atraumatic, normocephalic - Eye Eye exam: Present: PERRL, conjuntiva pink, sclera anicteric Pupils: Present: PERRL - Neck Neck exam general surgery: Present: supple, trachea midline. Absent: lymphadenopathy - Respiratory Respiratory exam: Present: CTAB. Absent: accessory muscle use, rales, rhonchi, wheezes - Cardiovascular Cardiovascular exam: Present: RRR, +S1, +S2. Absent: diastolic murmur, gallop, rubs, systolic murmur - GI/Abdominal GI/Abdominal exam: Present: normal bowel sounds, soft, no peritoneal signs. Absent: distended, tenderness - Extremities Exam Extremities exam: Present: warm, radial pulses palpable and symetrical. Absent : calf tenderness, cyanotic, pedal edema - Neurological Exam Neurological exam: Present: alert, CN II-XII intact, oriented X3, no focal deficits. Absent: pronater drift, facial droop, speech deficit - Skin Skin exam: Present: dry, intact
[2016-09-27] MEDS ORDERED: levoFLOXacin 500 MG TABLET PO SCH (20:00)
== END 2016-09-26 14:18 | disposition home or self-care (01) | DRG 193 ==
LOC: EMEROO 12:08 → 2ANU 12:08 → SUATTDRO 09-23 16:34
PROVIDERS: ADMIT Internal Medicine Endocrinology, Diabetes & Metabolism; ATTEND Internal Medicine